=== PATIENT | male | born 1970 | race Asian ===

== ENCOUNTER 2020-02-06 08:54 | Emergency (ER) | payer SELFPAY ==
[2020-02-06] VITALS (7 sets, daily range): BP systolic 141–171; BP diastolic 99–122; PULSE 61–84; RESP 16–18; TEMP 36.4; O2SAT 96–99; BMI 28.3
--- NOTE | 2020-02-06 09:24 | ED_ITS ---
HPI - Abdominal Pain General: Chief Complaint: Abdominal Pain Stated Complaint: abd pain Time Seen by Provider: 02/06/20 09:20 Source: patient Mode of arrival: ambulatory Limitations: no limitations History of Present Illness: HPI narrative: Patient is a 49-year-old male who presents to ED today with a complaint of abdominal pain that began around 6 AM when it awoke him from sleep. Patient tells me he got up and drink coffee which seemed to aggravate his abdominal pain. He tells me he has a history of acid reflux and stated it felt similar. He states pain continued throughout the morning prompting him to come to the emergency department for evaluation. Patient tells me pain is localized to his upper abdomen. He has had 2 episodes of vomiting. Bowel movements seem to be normal. He does not complain of fevers. He does tell me he was sweaty this morning but states his air conditioner is broken. MD elicited complaint: abdominal pain Pertinent past history: none Onset (ago): hour(s) Pain Consistency: constant Location: Epigastric and RUQ Severity: moderate Radiation: none Migration to: no migration Exacerbating factors: eating Relieving factors: nothing Associated Symptoms: Reports nausea and vomiting; Denies change in bowel habits, change in stool character, chills, constipation, diarrhea, dysuria, fever(s), hematochezia and syncope Review of Systems General: Reports: 10 or more systems reviewed and unremarkable except in HPI and below Const: Denies: fever(s), chills or body aches Card: Denies: chest pain, palpitations, irregular heart rhythm, edema, lightheadedness, syncope, pre-syncope or orthopnea Resp: Denies: dyspnea, productive cough or chest congestion GI: Reports: abdominal pain, nausea and vomiting; Denies: diarrhea, constipation, change in bowel habits, pain on defecation, rectal swelling, change in stool character, hematochezia, white/light colored stool or steatorrhea : Denies: flank pain, difficulty urinating, dysuria, urinary frequency, urinary urgency or urinary hesitancy Musc: Denies: neck pain, back pain, extremity pain, extremity swelling, joint pain or joint swelling Skin/Breast: Denies: rash Neuro: Denies: headache(s), numbness in extremities, weakness in extremities or sensory changes PFSH ED PFSH: Social History Smoking and tobacco status: current every day smoker Physical Exam Const: COMMON NORMALS: average body habitus, patient oriented x3, no limitations, healthy appearing, alert and well nourished GENERAL APPEARANCE: in distress (appears uncomfortable ) HENMT: COMMON NORMALS: normocephalic and atraumatic HEAD & SCALP: normocephalic and atraumatic Resp: COMMON NORMALS: normal respiratory effort and clear to auscultation bilaterally AUSCULTATION: clear to auscultation bilaterally Cardio: COMMON NORMALS: regular rate and regular rhythm RATE: regular rate RHYTHM: regular rhythm GI: COMMON NORMALS: Normal to inspection, nondistended, normoactive bowel sounds present, Soft to palpation, No hepatosplenomegaly present and no masses PALPATION: Yes Soft to palpation, Yes Tenderness to palpation present (GI) (RUQ, epigastric, RLQ; negative specialized exams for appendicitis ) and Yes No hepatosplenomegaly present : COMMON NORMALS: Yes no CVA tenderness BLADDER/KIDNEY EXAM: Yes no CVA tenderness Back/Pelvis: COMMON NORMALS: no CVA tenderness Extremity: COMMON NORMALS: normal to inspection Neuro: COMMON NORMALS: patient oriented x3 SENSORIUM/ORIENTATION: Yes alert Skin: COMMON NORMALS: no rashes or lesions noted GENERAL SKIN EXAM: no rashes or lesions noted Course ED course: Patient was given GI cocktail upon arrival but vomited this up. He was given IV zofran and morphine and currently is pain-free Consultations: Consultation #1: Dr. Alonzo-went over CT findings as well as US findings; due to size of CBD and questionable stone he recommends MRCP Spoke to Dr. Alonzo again after MRCP-there is no evidence for acute cholecystitis at this time; he agrees possibility of acute appendicitis given his history and exam are low; he will see patient in office on Tuesday; we will have pt return to ED for worsening symptoms Vital Signs: Vital signs: Vital Signs Temperature 97.6 F 02/06/20 09:13 Pulse Rate 84 02/06/20 15:14 Respiratory Rate 16 02/06/20 15:14 Blood Pressure 155/102 02/06/20 15:14 Pulse Oximetry 98 02/06/20 15:14 MDM - Abdominal Pain MDM Narrative: Medical decision making narrative: Patient has remained asymptomatic throughout his stay after his first dose of pain and nausea medications. He came in complaining of upper abdominal pain that began around 6 AM that felt similar to previous heartburn episodes. On his exam he did have tenderness to his RUQ, epigastric region, and RLQ. CT scan showing cholelithiasis as well as findings possibly suggestive of early appendicitis. Patient has negative specialized appendicitis testing. He does not complain of any RLQ tenderness on his history. He just noticed pain to that area with palpation on exam. US of his gallbladder obtained which showed a possible intraductal stone however this was ruled out with an MRCP. He does have a torturous gallbladder. Findings of ultrasound and CT were reviewed with general surgeon Dr. Alonzo who will see patient on Tuesday for reexamination. Strict return to ED precautions given regarding worsening symptoms or fevers. We will have case management also set him up with a PCP as patient's glucose was over 200 and he most likely is an undiagnosed diabetic. Of note EKG/troponins were ordered due to epigastric pain. EKG showing no acute ischemic findings. I nitial troponin at 23 but his repeat was normal at 14. Lab Data: Labs: Lab Results 02/06/20 02/06/20 02/06/20 Range/Units 09:29 09:29 09:29 WBC 8.4 (4.0-10.0) 10^3/ uL RBC 6.76 H (4.1-5.3) 10^6/u L Hgb 14.8 (11.7-16.6) g/dL Hct 48.1 (42.0-52.0) % MCV 71.2 L (80-94) fL MCH 21.9 L (28.0-34.0) pg MCHC 30.8 (30.0-36.0) g/dL RDW 15.6 H (12.1-15.1) % Plt Count 250 (130-400) 10^3/c mm MPV 9.9 (7.4-10.4) fL Neut % (Auto) 67.7 % Lymph % (Auto) 24.2 % [place] % (Auto) 5.4 % Eos % (Auto) 1.6 % Baso % (Auto) 0.7 % Neut # (Auto) 5.7 (1.8-7.7) 10^3/u L Lymph # (Auto) 2.0 (0.8-4.8) 10^3/u L [place] # (Auto) 0.5 (0.2-0.9) 10^3/u L Eos # (Auto) 0.1 (0.0-0.8) 10^3/u L Baso # (Auto) 0.1 (0.0-0.1) 10^3/u L Nucleated RBC % (a uto) 0 % Nucleated RBCs # 0.0 /100WBC Sodium 139 (136-145) mmol/L Potassium 3.3 L (3.5-5.1) mmol/L Chloride 99 (98-107) mmol/L Carbon Dioxide 29 (22-29) mmol/L Anion Gap 14.3 (5-19) BUN 21 H (6-20) mg/dL Creatinine 1.0 (0.7-1.2) mg/dL GFR Calculation 79.8 L (90-130) mL/min Glucose 216 H (65-115) mg/dL Calculated Osmolal ity 291 (285-295) mOsm/k g Calcium 9.2 (8.5-10.5) mg/dL Total Bilirubin 0.6 (0.15-1.2) mg/dL AST 52 H (0-40) U/L ALT 73 H (0-41) U/L Alkaline Phosphata se 76 (40-130) IU/L Troponin T Gen 5 n g/L 23 H (0-15) ng/L Total Protein 7.5 (6.6-8.7) g/dL Albumin 4.5 (3.5-5.2) g/dL Globulin 3.0 (1.3-4.6) g/dL Lipase 37 (13-60) U/L 02/06/20 Range/Units 11:22 WBC (4.0-10.0) 10^3/ uL RBC (4.1-5.3) 10^6/u L Hgb (11.7-16.6) g/dL Hct (42.0-52.0) % MCV (80-94) fL MCH (28.0-34.0) pg MCHC (30.0-36.0) g/dL RDW (12.1-15.1) % Plt Count (130-400) 10^3/c mm MPV (7.4-10.4) fL Neut % (Auto) % Lymph % (Auto) % [place] % (Auto) % Eos % (Auto) % Baso % (Auto) % Neut # (Auto) (1.8-7.7) 10^3/u L Lymph # (Auto) (0.8-4.8) 10^3/u L [place] # (Auto) (0.2-0.9) 10^3/u L Eos # (Auto) (0.0-0.8) 10^3/u L Baso # (Auto) (0.0-0.1) 10^3/u L Nucleated RBC % (a uto) % Nucleated RBCs # /100WBC Sodium (136-145) mmol/L Potassium (3.5-5.1) mmol/L Chloride (98-107) mmol/L Carbon Dioxide (22-29) mmol/L Anion Gap (5-19) BUN (6-20) mg/dL Creatinine (0.7-1.2) mg/dL GFR Calculation (90-130) mL/min Glucose (65-115) mg/dL Calculated Osmolal ity (285-295) mOsm/k g Calcium (8.5-10.5) mg/dL Total Bilirubin (0.15-1.2) mg/dL AST (0-40) U/L ALT (0-41) U/L Alkaline Phosphata se (40-130) IU/L Troponin T Gen 5 n g/L 14 (0-15) ng/L Total Protein (6.6-8.7) g/dL Albumin (3.5-5.2) g/dL Globulin (1.3-4.6) g/dL Lipase (13-60) U/L Imaging Data ^: CT Abd/Pel: Radiologist's impression: [address] [address] [address] Scan Report Signed Patient: Jesus Fernandes Unit #: [id number] : 1970 Age/Sex: 49 / M ADM Date: 02/06/20 Loc: ER Room/Bed: Attending Dr: Ordering Provider/Ordering MD: Almita Francois Date of Service: 02/06/20 Procedure(s): CT abdomen pelvis w con* [id number] Accession Number(s): [id number] Report Number: [id number] WS: [id number] CT ABDOMEN AND PELVIS WITH CONTRAST HISTORY: upper abdominal pain TECHNIQUE: Imaging performed of the abdomen and pelvis with IV contrast. Single phase imaging of the abdomen. Coronal and sagittal reformats are submitted. All CT scans at [facility] use at least one of these dose optimization techniques: automated exposure control; mA and/or kV adjustment per patient size (includes targeted exams where dose is matched to clinical indication); or iterative reconstruction. IV CONTRAST: Omnipaque 300; 95 mL IV. Oral contrast: No DLP: 654.65 mGy.cm COMPARISON: None available. Lower thorax: Lung bases are clear. Heart is normal size. No hiatal hernia. Liver/biliary system: Mild hepatic steatosis. Variable attenuation throughout the liver. No discrete mass. No bile duct dilatation. Gallbladder: Normally distended gallbladder. Gallbladder is tortuous along its course. There are stones within the gallbladder. No adjacent inflammation. Pancreas: Normal. Spleen: Normal. Adrenal glands: Normal. Right kidney: Normal size kidney with scattered hypodensities which are probably cysts. No solid mass or obstruction. Left kidney: Normal size kidney with scattered hypodensities which are too small to characterize. No solid mass or obstruction. Aorta: Mild atherosclerosis. No aneurysm. Lymphadenopathy: None. Free fluid: None. GI tract: Mild dilatation of the appendix. There is mild inflammation surrounding the distal appendix. There is still a small amount of air in the appendix. No GI tract obstruction. There some very mild mucosal edema in the ascending and transverse colon. No obstructive pattern. Very slight fecalization of material in the distal small bowel. No obstruction. Abdominal wall: Unremarkable abdominal wall. No hernia. Pelvis: Normal. Bones: Unremarkable. Notified GEOVANNA Pandey at 02/06/2020 10:[address]/CT abdomen pelvis w con* [id number] IMPRESSION: 1. Mild dilatation of the appendix and inflammatory changes around the distal appendix. Suspicious for distal early changes of appendicitis. 2. Cholelithiasis. 3. No GI tract obstruction. There is some very mild mucosal edema in the ascending and transverse colon. Dictated By: Crissy Mitchell DO Signed By: Crissy Mitchell DO Signed Date/Time: 02/06/20 1037 DD/ 1023 US gallbladder: Radiologist's impression: [address] [address] Ultrasound Report Signed Patient: Jesus Fernandes Unit #: [id number] : 1970 Age/Sex: 49 / M ADM Date: 02/06/20 Loc: ER Room/Bed: Attending Dr: Ordering Provider/Ordering MD: Almita Francois Date of Service: 02/06/20 Procedure(s): US gall bladder [id number] Accession Number(s): [id number] Report Number: [id number] WS: [id number] Gallbladder ultrasound, 02/06/2020 Clinical Data: gallstones; RUQ pain; elevated LFTs Comparison: CT abdomen and pelvis, 02/06/2020 Findings: The gallbladder shows numerous stones. The wall measures 0.2 cm with no pericholecystic fluid. The common bile duct is 1.0 cm and there could be an intraductal stone. Liver shows no cysts, masses or dilated intrahepatic ducts. The liver is dense and measures 17.8 cm. The pancreas is not obscured by overlying bowel gas and no cyst, pseudocyst, or evidence of pancreatitis is noted. Right kidney measures 12.0 cm and no cyst, masses or hydronephrosis can be seen. The aorta and inferior vena cava show no vascular abnormalities. US/US gall bladder [id number] Impression: 1 cholelithiasis. 2. Dilated common bile duct with questionable intraductal stone. 3. Dense liver. Dictated By: Azul Bonilla MD Signed By: Azul Bonilla MD Signed Date/Time: 02/06/20 1213 DD/ 1209 MRCP: Radiologist's impression: [address] [address] Magnetic Resonance Report Signed Patient: Jesus Fernandes Unit #: [id number] : 1970 Age/Sex: 49 / M ADM Date: 02/06/20 Loc: ER Room/Bed: Attending Dr: Ordering Provider/Ordering MD: Almita Francois Date of Service: 02/06/20 Procedure(s): MR MRCP 51351 Accession Number(s): [id number] Report Number: [id number] WS: [id number] MRCP (MAGNETIC RESONANCE CHOLANGIOPANCREATOGRAPHY) HISTORY: RUQ pain; possible intraductal stone; elevated LFTs COMPARISON: 02/06/2020 TECHNIQUE: Multiple sequences are performed to evaluate the intra and extrahepatic ducts. Gallbladder is mildly dilated and tortuous. There is tortuosity of the neck of the gallbladder. Stones are present in the neck of the gallbladder and also in the body of the gallbladder. Common bile duct is normal size. No intrahepatic duct dilatation. Common bile duct is very small caliber. No pancreatic duct abnormality. Small cyst superior pole LEFT kidney measures 1.0 cm. There is no ascites or pseudocyst within the abdomen. MR/MR MRCP 53557 IMPRESSION: 1. Cholelithiasis with a tortuous gallbladder. There is a stone within neck of the gallbladder. 2. No common bile duct stones. 3. No intrahepatic or extra hepatic duct dilatation. Dictated By: Crissy Mitchell DO Signed By: Crissy Mitchell DO Signed Date/Time: 1511 DD/ 1506 Discharge Plan Discharge Patient Disposition: Home, Self-Care Clinical Impression: Acute cholecystitis, Biliary colic, Acute hyperglycemia Condition: Stable Prescriptions: New hydrocodone-acetaminophen 5-325 mg tablet 1 tab PO Q6H PRN (Reason: pain) Qty: 14 RF: 0 ondansetron HCl [Zofran] 4 mg tablet 4 mg PO Q6H PRN (Reason: nausea and vomiting) Qty: 14 RF: 0 Discharge Orders: Discharge Order (Routine); Ordered 02/06/20 Ordered By: Almita Francois Referrals: Herbert Alonzo MD [Physician] - 02/08/20 1:45 pm Patient Instructions: Biliary Colic (ED), Abdominal Pain (ED) Activity Restrictions/Additional Instructions: You have an appointment to see Dr. Alonzo on Tuesday at 1:45. Please make this appointment for further evaluation of your abdominal pain. You need to return to the emergency department sooner for severe abdominal pain, repetitive vomiting, fevers, or any other concerns you may have. We will also set you up with a primary care provider for your elevated sugar levels as you could be an undiagnosed diabetic. Coding Level of Care Code ED [employer] Supervisor for Chg Fwd Exam Comprehensive
[2020-02-06] MEDS: lidocaine 2% viscous 15 ML, aluminum-mag hydrox-simethicon 30 ML, sucralfate oral liq 1 GM PO (09:31)
[2020-02-06 09:41] LABS: Basophils # 0.1 10^3/uL (0.0-0.1); Basophils % 0.7 %; Eosinophils # 0.1 10^3/uL (0.0-0.8); Eosinophils % 1.6 %; Hematocrit 48.1 % (42.0-52.0); Hemoglobin 14.8 g/dL (11.7-16.6); Lymphocytes % 24.2 %; Mean Corpuscular HGB Conc 30.8 g/dL (30.0-36.0); Mean Corpuscular Hemoglobin 21.9 pg (28.0-34.0); Mean Corpuscular Volume 71.2 fL (80-94); Mean Platelet Volume 9.9 fL (7.4-10.4); Monocytes # 0.5 10^3/uL (0.2-0.9); Monocytes % 5.4 %; Neutrophils # 5.7 10^3/uL (1.8-7.7); Neutrophils % 67.7 %; Nucleated Red Blood Cells % 0 %; Platelet Count 250 10^3/cmm (130-400); Red Blood Count 6.76 10^6/uL (4.1-5.3); Red Cell Distribution Width 15.6 % (12.1-15.1); White Blood Count 8.4 10^3/uL (4.0-10.0)
[2020-02-06 09:54] LABS: Alanine Aminotransferase 73 U/L (0-41); Albumin Level 4.5 g/dL (3.5-5.2); Alkaline Phosphatase 76 IU/L (40-130); Anion Gap 14.3 (5-19); Aspartate Amino Transferase 52 U/L (0-40); Blood Urea Nitrogen 21 mg/dL (6-20); Calcium 9.2 mg/dL (8.5-10.5); Carbon Dioxide 29 mmol/L (22-29); Chloride 99 mmol/L (98-107); Glomerular Filtration Rate 79.8 mL/min (90-130); Glucose 216 mg/dL (65-115); Lipase 37 U/L (13-60); Osmolality Calculated 291 mOsm/kg (285-295); Potassium 3.3 mmol/L (3.5-5.1); Sodium 139 mmol/L (136-145); Total Bilirubin 0.6 mg/dL (0.15-1.2); Total Protein 7.5 g/dL (6.6-8.7)
--- NOTE | 2020-02-06 09:54 | CT_ITS ---
WS: [id number] CT ABDOMEN AND PELVIS WITH CONTRAST HISTORY: upper abdominal pain TECHNIQUE: Imaging performed of the abdomen and pelvis with IV contrast. Single phase imaging of the abdomen. Coronal and sagittal reformats are submitted. All CT scans at [facility] use at least one of these dose optimization techniques: automated exposure control; mA and/or kV adjustment per patient size (includes targeted exams where dose is matched to clinical indication); or iterativ e reconstruction. IV CONTRAST: Omnipaque 300; 95 mL IV. Oral contrast: No DLP: 654.65 mGy.cm COMPARISON: None available. Lower thorax: Lung bases are clear. Heart is normal size. No hiatal hernia. Liver/biliary system: Mild hepatic steatosis. Variable attenuation throughout the liver. No discrete mass. No bile duct dilatation. Gallbladder: Normally distended gallbladder. Gallbladder is tortuous along its course. There are ston es within the gallbladder. No adjacent inflammation. Pancreas: Normal. Spleen: Normal. Adrenal glands: Normal. Right kidney: Normal size kidney with scattered hypodensities which are probably cysts. No solid mass or obstruction. Left kidney: Normal size kidney with scattered hypodensities which are too small to characterize. No solid mass or obstruction. Aorta: Mild atherosclerosis. No aneurysm. Lymphadenopathy: None. Free fluid: None. GI tract: Mild dilatation of the appendix. There is mild inflammation surrounding the distal appendix . There is still a small amount of air in the appendix. No GI tract obstruction. There some very mild mucosal edema in the ascending and transverse colon. No obstructive pattern. Very slight fecalizatio n of material in the distal small bowel. No obstruction. Abdominal wall: Unremarkable abdominal wall. No hernia. Pelvis: Normal. Bones: Unremarkable. Notified GEOVANNA Pandey at 02/06/2020 10:[address]/CT abdomen pelvis w con* [id number] IMPRESSION: 1. Mild dilatation of the appendix and inflammatory changes around the distal appendix. Suspicious for distal early changes of appendicitis. 2. Cholelithiasis. 3. No GI tract obstruction. There is some very mild mucosal edema in the ascen ding and transverse colon.
--- NOTE | 2020-02-06 09:54 | ECG_ITS ---
Measurements Intervals [place] Rate: 64 P: 39 LA: 239 QRS: 52 QRSD: 104 T: 41 QT: 422 QTc: 436 SINUS RHYTHM WITH FIRST DEGREE AV BLOCK MINIMAL VOLTAGE CRITERIA FOR LVH, CONSIDER NORMAL VARIANT [MEETS CRITERIA IN ONE OF: R(aVL), S(V1), R(V5), R(V5/V6)+S(V1)] No previous ECG available for comparison Electronically Signed On 02-06-2020 15:56:42 CDT by Kam Arreguin M.D. [email or web address]
[2020-02-06] MEDS: iohexol 300 mg/mL 100 mL Btl IV (10:06)
[2020-02-06] MEDS: ondansetron 2 mg/ML SDV 2 mL 4 MG IVP (10:10)
[2020-02-06] MEDS: morphine 4 mg/mL SDV 1 mL IVP (10:11)
[2020-02-06 10:23] LABS: Troponin T (5th) Once 23 ng/L (0-15)
--- NOTE | 2020-02-06 11:02 | US_ITS ---
WS: [id number] Gallbladder ultrasound, 02/06/2020 Clinical Data: gallstones; RUQ pain; elevated LFTs Comparison: CT abdomen and pelvis, 02/06/2020 Findings: The gallbladder shows numerous stones. The wall measures 0.2 cm with no pericholecystic fluid. The common bile duct is 1.0 cm and there could be an intraductal stone. Liver shows no cysts, masses or dilated intrahepatic ducts. The liver is dense and measures 17.8 cm. The pancreas is not obscured by overlying bowel gas and no cyst, pseudocyst, or evidence of pancreati tis is noted. Right kidney measures 12.0 cm and no cyst, masses or hydronephrosis can be seen. The aorta and inferior vena cava show no vascular abnormalities. US/US gall bladder [id number] Impression: 1 cholelithiasis. 2. Dilated common bile duct with questionable intraductal stone. 3. Dense liver.
[2020-02-06 11:44] LABS: Troponin T (5th) Once 14 ng/L (0-15)
--- NOTE | 2020-02-06 12:35 | MR_ITS ---
WS: [id number] MRCP (MAGNETIC RESONANCE CHOLANGIOPANCREATOGRAPHY) HISTORY: RUQ pain; possible intraductal stone; elevated LFTs COMPARISON: 02/06/2020 TECHNIQUE: Multiple sequences are performed to evaluate the intra and extrahepatic ducts. Gallbladder is mildly dilated and tortuous. There is tortuosity of the neck of the gallbladder. Stone s are present in the neck of the gallbladder and also in the body of the gallbladder. Common bile jovan t is normal size. No intrahepatic duct dilatation. Common bile duct is very small caliber. No pancrea tic duct abnormality. Small cyst superior pole LEFT kidney measures 1.0 cm. There is no ascites or ps eudocyst within the abdomen. MR/MR MRCP 45002 IMPRESSION: 1. Cholelithiasis with a tortuous gallbladder. There is a stone within neck of the gallbladder. 2. No common bile duct stones. 3. No intrahepatic or extra hepatic duct dilatation.
--- NOTE | 2020-02-07 08:25 | DCPLANNER ---
late entry - manager case management was asked to schedule a follow up appointment for patient with Dr. Alonzo at [facility]. internal communications manager called [facility], spoke with Letty, a follow up appointment is scheduled for Saturday, February 08, 2020 at 1:[address] Alonzo. internal communications manager informed ED physician of the scheduled appointment.
--- NOTE | 2020-02-08 14:54 | DCPLANNER ---
cable installation manager had message to speak with patient about getting a primary care physician. cable installation manager called patient, unable to speak with patient at this time, not at phone number called.
--- NOTE | 2020-02-14 13:50 | DCPLANNER ---
Patient attended appointment scheduled for 02.08.20 with [facility].
== END 2020-02-06 16:01 | disposition home or self-care (01) ==
PROVIDERS: Emergency Provider Physician Assistant
DX: K80.42 Calculus of bile duct with acute cholecystitis without obstruction (principal); R73.9 Hyperglycemia, unspecified; F17.210 Nicotine dependence, cigarettes, uncomplicated
CPT/HCPCS: 12345; 36415; 74177; 74181; 76705; 80053; 83690; 84484; 85025; 93005; 96374; 96375; 99283; 99284; J2270; J2405; Q9967